=== PATIENT | female | born 2005 | race African-American/Black ===

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

== ENCOUNTER 2023-07-03 14:51 | Outpatient (CLI) | payer OTHER ==
[~2023-07-03 14:51] MED LIST changes: +MICRONOR 5MG5 MG/TAB PO; +MIRENA52 MG IY; +NATURAL IRON65 MG PO
[2023-07-03 15:16] LABS: BASO % 0.4 % (0.0-2.0); EOS # 0.1 K/mm3 (0.0-0.7); EOS % 1.8 % (0.0-4.0); GRAN # 4.1 K/mm3 (1.4-6.5); GRAN % 58.6 % (42.2-75.2); HEMATOCRIT 39.1 % (35.0-45.0); HEMOGLOBIN 13.5 g/dl (12.0-15.0); LYMPH # 2.1 K/mm3 (1.2-3.4); LYMPH % 30.4 % (20.0-51.0); MEAN CELL VOLUME 96 fl (80.0-95.0); MEAN CORPUSCULAR HEMOGLOBIN 33 pg (26-32); MEAN CORPUSCULAR HGB CONC 35 g/dl (33.0-37.0); MEAN PLATELET VOLUME 10.2 fl (7.4-10.4); MONO # 0.6 K/mm3 (0.1-0.6); MONO % 8.7 % (1.7-9.3); PLATELET COUNT 218 K/mm3 (130-400); RED BLOOD COUNT 4.06 M/mm3 (4.10-5.30); REDCELL DISTRIBUTION WIDTH-CV 11.9 % (11.5-14.5)
[2023-07-03 15:23] LABS: ERYTHROCYTE SEDIMENTATION RATE 2 mm/hr (0-20)
[2023-07-03 15:34] LABS: ALBUMIN 4.1 gm/dL (3.5-5.0); BILIRUBIN,TOTAL 0.3 mg/dL (0.2-1.2); C-REACTIVE PROTEIN 0.02 mg/dL (0.00-0.50); CALCIUM 9.5 mg/dL (8.4-10.2); CREATININE, serum 1.13 mg/dL (0.57-1.11); POTASSIUM 4.1 mmol/L (3.5-4.5); TOTAL PROTEIN 7.1 gm/dL (6.2-8.1)
[2023-07-03 15:45] VITALS: BP 111/73; PULSE 60; TEMP 99.1
[2023-07-03 15:47] LABS: BILIRUBIN,DIRECT 0.1 mg/dL (0.0-0.5)
[2023-07-03] MEDS ORDERED: [UNRECOGNIZED DRUG - CODE] SL (15:57)
[2023-07-03] MEDS ORDERED: LEVSIN0.125 M1 PO ×2 (15:58)
[2023-07-03] MEDS ORDERED: PEPCID40 MG PO (15:59)
[2023-07-03 16:00] VITALS: BP 106/68; PULSE 55
[2023-07-03] MEDS ORDERED: LEXAPRO 10MG10 MG PO (16:00)
[2023-07-03] MEDS ORDERED: BUSPAR5 MG PO (16:00)
[2023-07-03] MEDS ORDERED: AJOVY AUTO225 MG/1.5 SQ (16:01)
[2023-07-03 16:30] VITALS: BP 104/67; PULSE 60
--- NOTE | 2023-07-03 16:56 | NUR ---
Pt ambulated to restroom, gait steady. She is tolerating infusion without issue. Denies needs at this time. Fresh warm blanket provided for comfort. Report given to BAYRON Romeo who will continue to monitor pt during infusion.
[2023-07-03 17:00] VITALS: BP 110/68; PULSE 60; TEMP 97.9
[2023-07-03 17:30] VITALS: BP 108/70; PULSE 56
--- NOTE | 2023-07-03 18:00 | NUR ---
PT TOLERATED INFUSION WELL. VS REMAINED WITHIN NORMAL LIMITS. PT AMBULATED TO [facility] AND WAS FREE FROM ACUTE CONCERNS AND COMPLAINTS FOLLOWING INFUSION. IV DISCONTINUED.
== END 2023-07-03 18:01 | disposition home or self-care (01) ==
LOC: EUO 14:51
PROVIDERS: Family Medicine
DX: K51.90 Ulcerative colitis, unspecified, without complications (principal)
CPT/HCPCS: J7050; Q5103

== ENCOUNTER 2023-08-21 11:48 | Outpatient (CLI) | payer OTHER ==
[~2023-08-21] VITALS: Ht 172.7 cm; Wt 58.5 kg
[~2023-08-21 11:48] MED LIST changes: +AJOVY AUTO225 MG/1.5 SQ; +BUSPAR5 MG PO; +LEVSIN0.125 M1 PO; +LEXAPRO 10MG10 MG PO; +PEPCID40 MG PO; +[UNRECOGNIZED DRUG - CODE] SL
[2023-08-21 12:12] VITALS: BP 103/69; PULSE 80; TEMP 98.9
[2023-08-21 12:35] LABS: BASO % 0.4 % (0.0-2.0); EOS # 0.1 K/mm3 (0.0-0.7); EOS % 1.8 % (0.0-4.0); GRAN # 4.2 K/mm3 (1.4-6.5); GRAN % 61.3 % (42.2-75.2); HEMATOCRIT 39.1 % (35.0-45.0); HEMOGLOBIN 13.2 g/dl (12.0-15.0); LYMPH # 1.9 K/mm3 (1.2-3.4); LYMPH % 27.6 % (20.0-51.0); MEAN CELL VOLUME 96 fl (80.0-95.0); MEAN CORPUSCULAR HEMOGLOBIN 32 pg (26-32); MEAN CORPUSCULAR HGB CONC 34 g/dl (33.0-37.0); MEAN PLATELET VOLUME 10.6 fl (7.4-10.4); MONO # 0.6 K/mm3 (0.1-0.6); MONO % 8.6 % (1.7-9.3); PLATELET COUNT 216 K/mm3 (130-400); RED BLOOD COUNT 4.07 M/mm3 (4.10-5.30); REDCELL DISTRIBUTION WIDTH-CV 12.1 % (11.5-14.5)
[2023-08-21 12:42] LABS: ALBUMIN 4.2 gm/dL (3.5-5.0); BILIRUBIN,TOTAL 0.5 mg/dL (0.2-1.2); CALCIUM 9.8 mg/dL (8.4-10.2); CREATININE, serum 1.03 mg/dL (0.57-1.11); POTASSIUM 3.9 mmol/L (3.5-4.5); TOTAL PROTEIN 6.9 gm/dL (6.2-8.1)
[2023-08-21] MEDS ORDERED: inFLIXimab-dyyb (Inflectra) 400 MG in NS 250 ML IV ONE (13:30)
[2023-08-21 13:45] VITALS: BP 108/76; PULSE 66
[2023-08-21 14:26] VITALS: BP 106/72; PULSE 72
[2023-08-21 14:45] VITALS: BP 111/74; PULSE 74
[2023-08-21 15:15] VITALS: BP 93/64; PULSE 70
[2023-08-21 15:48] VITALS: BP 107/64; PULSE 71
== END 2023-08-21 15:49 | disposition home or self-care (01) ==
LOC: EUO 11:48
PROVIDERS: Family Medicine
DX: K51.90 Ulcerative colitis, unspecified, without complications (principal)
CPT/HCPCS: J7050; Q5103

== ENCOUNTER 2023-11-27 12:18 | Outpatient (CLI) | payer OTHER ==
[~2023-11-27] VITALS: Ht 172.7 cm; Wt 54.4 kg
[2023-11-27] MEDS ORDERED: inFLIXimab-dyyb (Inflectra) 400 MG in NS 250 ML IV ONE (13:00)
[2023-11-27] MEDS ORDERED: diphenhydrAMINE 25 MG CAP PO ONE (13:00)
[2023-11-27] MEDS ORDERED: Acetaminophen 500 MG TAB PO ONE (13:00)
[2023-11-27 13:27] VITALS: BP 98/46; PULSE 76; TEMP 98.2
[2023-11-27 13:55] VITALS: BP 108/71; PULSE 69
[2023-11-27 14:25] VITALS: BP 118/80; PULSE 69
[2023-11-27 14:55] VITALS: BP 113/81; PULSE 64
[2023-11-27 15:25] VITALS: BP 142/62; PULSE 72
--- NOTE | 2023-11-27 15:34 | NUR ---
PT TOLERATED INFUSION WELL. VS REMAINED WITIN NORMAL LIMITS. PT AMBULATED TO [facility] UPON DISCHARGE AND WAS FREE FROM CONCERNS AND COMPLAINTS.
== END 2023-11-27 15:35 | disposition home or self-care (01) ==
LOC: EUO 12:18
DX: K51.90 Ulcerative colitis, unspecified, without complications (principal)
CPT/HCPCS: J7050; Q5103

== ENCOUNTER 2024-05-22 08:24 | Emergency (ER) | payer OTHER ==
[~2024-05-22] VITALS: Ht 170.2 cm; Wt 54.5 kg
[~2024-05-22 08:24] MED LIST changes: +ALDACTONE 25MG25 M1 PO; +ATARAX 25MG25 MG/TAB PO; +ATIVAN 1MG T1 MG/TAB PO; +BUSPAR DIVIDOSE15 MG PO; +PROZAC 20MG20 MG PO
[2024-05-22 08:32] VITALS: TEMP 97.1
[2024-05-22] MEDS ORDERED: diphenhydrAMINE 50 MG/ML 1 ML VIAL IV ONE (09:00)
[2024-05-22] MEDS ORDERED: Ondansetron 4 MG/2 ML VIAL IV ONE (09:00)
[2024-05-22] MEDS ORDERED: NS 1,000 ML IV ONE (09:00)
[2024-05-22 09:22] LABS: BASO % 0.6 % (0.0-2.0); EOS # 0.2 K/mm3 (0.0-0.7); EOS % 3.3 % (0.0-4.0); GRAN # 2.3 K/mm3 (1.4-6.5); GRAN % 45.4 % (42.2-75.2); HEMATOCRIT 39.9 % (37.0-47.0); HEMOGLOBIN 13.6 g/dl (12.5-16.0); LYMPH # 2.1 K/mm3 (1.2-3.4); LYMPH % 40.9 % (20.0-51.0); MEAN CELL VOLUME 97 fl (80.0-100.0); MEAN CORPUSCULAR HEMOGLOBIN 33 pg (27-31); MEAN CORPUSCULAR HGB CONC 34 g/dl (33.0-37.0); MEAN PLATELET VOLUME 10.2 fl (7.4-10.4); MONO # 0.5 K/mm3 (0.1-0.6); MONO % 9.6 % (1.7-9.3); PLATELET COUNT 196 K/mm3 (130-400); RED BLOOD COUNT 4.13 M/mm3 (4.10-5.30); REDCELL DISTRIBUTION WIDTH-CV 12.2 % (11.5-14.5)
[2024-05-22 09:41] LABS: ALBUMIN 4.1 g/dL (3.5-5.0); BILIRUBIN,TOTAL 0.4 mg/dL (0.2-1.2); CALCIUM 9.7 mg/dL (8.4-10.2); CREATININE, serum 1.06 mg/dL (0.57-1.11); POTASSIUM 4.1 mEq/L (3.5-4.5)
[2024-05-22] MEDS ORDERED: Ketorolac 15 MG/ML VIAL IV ONE (11:15)
[2024-05-22 11:19] LABS: COLLECTION METHOD CLEAN CATCH
[2024-05-22 11:27] LABS: PH 5.5 (5.0-8.5); URINE APPEARANCE CLEAR (CLEAR/HAZY); URINE BLOOD NEGATIVE (NEGATIVE); URINE COLOR YELLOW (YELLOW); URINE GLUCOSE NEGATIVE (NEGATIVE); URINE KETONE NEGATIVE (NEGATIVE); URINE NITRATE NEGATIVE (NEGATIVE); URINE PROTEIN(semi-quant) NEGATIVE (NEGATIVE); URINE UROBILINOGEN 0.2 E.U/dL (0.2-1.0)
[2024-05-22 12:22] VITALS: BP 99/67; PULSE 59
== END 2024-05-22 12:25 | disposition home or self-care (01) ==
LOC: COL.ER 08:24
PROVIDERS: Family Medicine
DX: G43.909 Migraine, unspecified, not intractable, without status migrainosus (principal)
CPT/HCPCS: J0780; J1200; J1885; J2405; J7030